=== PATIENT | male | born 1990 ===

== ENCOUNTER 2024-08-06 18:04 | Inpatient (IN) | payer OTHER ==
[~2024-08-06] VITALS: Ht 180.3 cm; Wt 107.8 kg
[2024-08-06] MEDS ORDERED: IBUP-1492 PO (19:06)
[2024-08-06] MEDS ORDERED: AMOX500C2 PO (19:06)
[2024-08-06] MEDS ORDERED: 0.9% SODIUM CHLORIDE 10 ML SYRINGE IVP PRN (20:00)
[2024-08-06 20:37] LABS: BASOPHILS % (AUTO) 0.4 % (0.0-2.0); EOSINOPHILS % (AUTO) 0.9 % (1.0-6.0); HEMATOCRIT 39.7 % (41-53); HEMOGLOBIN 13.8 g/dL (13.5-17.5); LYMPHOCYTES # (AUTO) 1.7 K/uL (1.0-4.8); LYMPHOCYTES % (AUTO) 17.1 % (22.0-44.0); MEAN CORPUSCULAR HEMOGLOBIN 29.9 pg (26.0-34.0); MEAN CORPUSCULAR HGB CONC 34.7 G/dL (31.0-37.0); MEAN CORPUSCULAR VOLUME 86 fL (80-100); MONOCYTES # (AUTO) 0.7 K/uL (0.1-1.0); NEUTROPHILS # (AUTO) 7.4 K/uL (1.8-7.7); NEUTROPHILS % (AUTO) 74.6 % (40.0-70.0); PLATELET COUNT (AUTO) 237 K/uL (150-450); RED BLOOD CELL COUNT(AUTO) 4.61 MIL/uL (4.50-5.90); RED CELL DISTRIBUTION WIDTH 12.6 % (11.5-14.5); WHITE BLOOD COUNT (AUTO) 9.9 K/uL (4.5-11.0)
[2024-08-06 20:44] LABS: CALCIUM, TOTAL 9.1 mg/dL (8.8-10.5); CHLORIDE 103 mmol/L (98-107); GLUCOSE,RANDOM 104 mg/dL (70-110); UREA NITROGEN, BLOOD 15 mg/dL (7-18)
[2024-08-06 20:45] LABS: ANION GAP 7 mmol/L (8-16); CARBON DIOXIDE 30 mmol/L (22-29); CREATININE 0.83 mg/dL (0.60-1.30); GLOMERULAR FILTR. RATE CALC > 60 mL/min (>60); POTASSIUM 3.9 mmol/L (3.5-5.1); SODIUM SERUM 140 mmol/L (136-145)
[2024-08-06] MEDS ORDERED: ONDANSETRON HCL 4 MG/2 ML VIAL IVP PRN (20:45)
[2024-08-06 20:53] LABS: LACTIC ACID 1.8 mmol/L (0.4-2.0)
[2024-08-06 20:57] LABS: ALBUMIN 3.5 g/dL (3.4-5.0)
[2024-08-06 21:03] LABS: BILIRUBIN,TOTAL 0.4 mg/dL (0.1-1.0); TOTAL PROTEIN, SERUM 7.5 g/dL (6.4-8.2)
[2024-08-06] MEDS: VANCOMYCIN 1GM/WATER(PEG/NADA) 200 ML IV ONE (21:04)
[2024-08-06] MEDS: PIPERACILLIN/TAZO 3.375 GM/D5W 50 ML IV ONE (21:04)
[2024-08-06 21:05] LABS: ALANINE AMINOTRANSFERASE 31 U/L (12-78); ALKALINE PHOSPHATASE 65 U/L (46-116); ASPARTATE AMINOTRANSFERASE 21 U/L (15-37)
[2024-08-06] MEDS: DOCUSATE SODIUM 100 MG CAPSULE PO SCH (21:05)
[2024-08-06 21:30] LABS: APPEARANCE,URINE CLEAR (CLEAR); BILIRUBIN,URINE NEGATIVE (NEGATIVE); COLOR,URINE LIGHT YELLOW (YELLOW); GLUCOSE, URINE (UA) NEGATIVE (NEGATIVE); KETONES,URINE NEGATIVE (NEGATIVE); LEUKOCYTE ESTERASE ,URINE NEGATIVE (NEGATIVE); NITRATE,URINE NEGATIVE (NEGATIVE); OCCULT BLOOD,URINE TRACE (NEGATIVE); PH,URINE 6.5 (5.0-8.0); PROTEIN,URINE NEGATIVE (NEGATIVE); SPECIFIC GRAVITIY, URINE 1.021 (1.003-1.030); UROBILINOGEN,URINE <=1.0 mg/dL (<=1.0)
[2024-08-06] MEDS: KETOROLAC TROMETHAMINE 15 MG/ML VIAL IVP PRN (21:41)
[2024-08-06] MEDS ORDERED: IOHEXOL 350 MG/ML 100 ML VIAL ONE (22:00)
[2024-08-06] MEDS ORDERED: SODIUM CHLORIDE 0.9% 100 ML ONE (22:00)
[2024-08-06 22:03] LABS: BACTERIA,URINE None Seen /HPF (None Seen); RBC,URINE 0-2 /HPF (0-2); WBC,URINE None Seen /HPF (0-5)
[2024-08-06 23:48] VITALS: BP 128/79; PULSE 74; RESP 16; TEMP 99.7; O2SAT 100
[2024-08-06] MEDS: ACETAMINOPHEN 325 MG TABLET PO PRN (23:49)
[2024-08-07] MEDS ORDERED: INFLUENZA VIRUS VACCINE TVS (6MO+) 2024-25/PF 45 MCG/0.5 ML SYRINGE IM. ONE (04:15)
[2024-08-07 05:40] VITALS: BP 122/51; PULSE 70; RESP 20; TEMP 98.3; O2SAT 100
[2024-08-07] MEDS: RINGERS SOLUTION,LACTATED 1,000 ML IV SCH (06:18)
[2024-08-07 07:21] LABS: ANION GAP 5 mmol/L (8-16); BASOPHILS % (AUTO) 0.4 % (0.0-2.0); CALCIUM, TOTAL 8.4 mg/dL (8.8-10.5); CARBON DIOXIDE 28 mmol/L (22-29); CHLORIDE 103 mmol/L (98-107); CREATININE 0.82 mg/dL (0.60-1.30); EOSINOPHILS % (AUTO) 0.8 % (1.0-6.0); GLOMERULAR FILTR. RATE CALC > 60 mL/min (>60); GLUCOSE,RANDOM 89 mg/dL (70-110); HEMATOCRIT 40.5 % (41-53); HEMOGLOBIN 14.1 g/dL (13.5-17.5); LYMPHOCYTES # (AUTO) 1.4 K/uL (1.0-4.8); MEAN CORPUSCULAR HGB CONC 34.9 G/dL (31.0-37.0); MEAN CORPUSCULAR VOLUME 86 fL (80-100); MONOCYTES # (AUTO) 0.7 K/uL (0.1-1.0); MONOCYTES % (AUTO) 7.6 % (2.0-9.0); NEUTROPHILS # (AUTO) 7.5 K/uL (1.8-7.7); NEUTROPHILS % (AUTO) 77.2 % (40.0-70.0); PLATELET COUNT (AUTO) 233 K/uL (150-450); POTASSIUM 3.5 mmol/L (3.5-5.1); RED CELL DISTRIBUTION WIDTH 12.7 % (11.5-14.5); SODIUM SERUM 136 mmol/L (136-145); UREA NITROGEN, BLOOD 14 mg/dL (7-18); WHITE BLOOD COUNT (AUTO) 9.7 K/uL (4.5-11.0)
[2024-08-07 08:18] VITALS: BP 115/72; PULSE 62; RESP 18; TEMP 98.2; O2SAT 99
[2024-08-07 20:10] VITALS: BP 144/80; PULSE 86; RESP 18; TEMP 97.9; O2SAT 98
[2024-08-07] MEDS ORDERED: SODIUM CHLORIDE 0.9% 1,000 ML ONE (21:37)
[2024-08-07] MEDS: PIPERACILLIN/TAZO 3.375 GM/D5W 50 ML IV SCH (21:41)
[2024-08-07] MEDS: VANCOMYCIN 1.75GM/WATER(PEG) 350 ML IV ONE (22:30)
[2024-08-07] MEDS: HEPARIN SODIUM,PORCINE 5,000 UNITS/ML VIAL SQ SCH (22:31)
[2024-08-08 05:27] VITALS: BP 104/69; PULSE 54; RESP 18; TEMP 98.2; O2SAT 96
[2024-08-08] MEDS: VANCOMYCIN 1.25 GM/WATER(PEG) 250 ML IV SCH (08:41)
[2024-08-08 10:23] VITALS: BP 113/75; PULSE 63; RESP 18; TEMP 98.2; O2SAT 98
[2024-08-08 10:39] LABS: ANION GAP 7 mmol/L (8-16); CALCIUM, TOTAL 9.1 mg/dL (8.8-10.5); CARBON DIOXIDE 27 mmol/L (22-29); CHLORIDE 103 mmol/L (98-107); CREATININE 0.99 mg/dL (0.60-1.30); GLOMERULAR FILTR. RATE CALC > 60 mL/min (>60); GLUCOSE,RANDOM 95 mg/dL (70-110); POTASSIUM 4.9 mmol/L (3.5-5.1); SODIUM SERUM 137 mmol/L (136-145); UREA NITROGEN, BLOOD 10 mg/dL (7-18)
[2024-08-08] MEDS: MAGNESIUM CITRATE [LEMON] 300 ML ORAL SOLUTION PO ONE (17:18)
[2024-08-08 19:50] VITALS: BP 130/88; PULSE 69; RESP 18; TEMP 98.2; O2SAT 97
[2024-08-09 05:03] VITALS: BP 97/56; PULSE 51; RESP 18; TEMP 97.6; O2SAT 98
[2024-08-09 07:41] LABS: ANION GAP 5 mmol/L (8-16); CALCIUM, TOTAL 8.7 mg/dL (8.8-10.5); CARBON DIOXIDE 27 mmol/L (22-29); CHLORIDE 104 mmol/L (98-107); CREATININE 0.96 mg/dL (0.60-1.30); GLOMERULAR FILTR. RATE CALC > 60 mL/min (>60); GLUCOSE,RANDOM 97 mg/dL (70-110); POTASSIUM 3.9 mmol/L (3.5-5.1); SODIUM SERUM 136 mmol/L (136-145); UREA NITROGEN, BLOOD 13 mg/dL (7-18); VANCOMYCIN,RANDOM 15.9 mcg/mL (25.0-50.0)
[2024-08-09 08:00] VITALS: BP 127/70; PULSE 61; RESP 19; TEMP 98.1; O2SAT 96
[2024-08-09 08:09] VITALS: BP 109/67; PULSE 53; RESP 18; TEMP 97.9; O2SAT 99
[2024-08-09 16:00] VITALS: BP 127/78; PULSE 65; RESP 18; TEMP 98.2; O2SAT 99
[2024-08-09] MEDS ORDERED: ZOLPIDEM TARTRATE 5 MG TABLET PO PRN (16:30)
[2024-08-09] MEDS: ZOLPIDEM TARTRATE 10 MG TABLET PO PRN (20:24)
[2024-08-09 20:25] VITALS: BP 120/70; PULSE 60; RESP 18; TEMP 97.7; O2SAT 97
[2024-08-10 04:40] VITALS: BP 109/59; PULSE 52; RESP 18; TEMP 97.6; O2SAT 98
[2024-08-10 06:28] LABS: ANION GAP 8 mmol/L (8-16); CARBON DIOXIDE 26 mmol/L (22-29); CHLORIDE 103 mmol/L (98-107); CREATININE 1.04 mg/dL (0.60-1.30); GLOMERULAR FILTR. RATE CALC > 60 mL/min (>60); GLUCOSE,RANDOM 104 mg/dL (70-110); SODIUM SERUM 137 mmol/L (136-145); UREA NITROGEN, BLOOD 14 mg/dL (7-18)
[2024-08-10 08:41] VITALS: BP 124/71; PULSE 60; RESP 18; TEMP 98.6; O2SAT 95
[2024-08-10 10:00] LABS: BASOPHILS % (AUTO) 0.8 % (0.0-2.0); EOSINOPHILS % (AUTO) 2.7 % (1.0-6.0); HEMATOCRIT 41.7 % (41-53); HEMOGLOBIN 14.4 g/dL (13.5-17.5); LYMPHOCYTES # (AUTO) 2.4 K/uL (1.0-4.8); LYMPHOCYTES % (AUTO) 43.1 % (22.0-44.0); MEAN CORPUSCULAR HEMOGLOBIN 29.6 pg (26.0-34.0); MEAN CORPUSCULAR HGB CONC 34.5 G/dL (31.0-37.0); MEAN CORPUSCULAR VOLUME 86 fL (80-100); MONOCYTES # (AUTO) 0.4 K/uL (0.1-1.0); MONOCYTES % (AUTO) 7.6 % (2.0-9.0); NEUTROPHILS # (AUTO) 2.5 K/uL (1.8-7.7); NEUTROPHILS % (AUTO) 45.8 % (40.0-70.0); PLATELET COUNT (AUTO) 263 K/uL (150-450); RED BLOOD CELL COUNT(AUTO) 4.86 MIL/uL (4.50-5.90); RED CELL DISTRIBUTION WIDTH 12.3 % (11.5-14.5); WHITE BLOOD COUNT (AUTO) 5.5 K/uL (4.5-11.0)
[2024-08-10] MEDS ORDERED: ACET650S24 PR (11:36)
[2024-08-10] MEDS ORDERED: DOXY-354 PO (11:39)
[2024-08-11 05:08] LABS: HEPATITIS C AB (EIA) Non Reactive (Non Reactive)
== END 2024-08-10 13:03 | DRG 603 ==
LOC: EMS 18:04 → EDH 20:34 → 6S 23:36
PROVIDERS: ADMIT Internal Medicine; ATTEND Internal Medicine
DX: L03.115 Cellulitis of right lower limb (principal); E87.3 Alkalosis; L02.415 Cutaneous abscess of right lower limb; F12.11 Cannabis abuse, in remission; E66.9 Obesity, unspecified; Z79.899 Other long term (current) drug therapy; Z68.33 Body mass index [BMI] 33.0-33.9, adult
CPT/HCPCS: 71045; 73701; 80048; 80053; 80202; 81001; 83605; 83735; 84145; 85025; 85610; 86803; 87040; 87070; 87186; 87205; 87340; 93005; 99285; J1644; J1885; J2543; J7030; J7050; J7120; 36415-L1; 36415-TC

== ENCOUNTER 2024-09-02 16:48 | Emergency (ER) | payer OTHER ==
[~2024-09-02] VITALS: Ht 180.3 cm; Wt 112.0 kg
[~2024-09-02 16:48] MED LIST: ACET650S24 PR; DOXY-354 PO; IBUP-1492 PO
[2024-09-02] MEDS ORDERED: ACET-2247 PO (17:09)
[2024-09-02 17:28] VITALS: TEMP 99.4
[2024-09-02] MEDS: LIDOCAINE 1% 10 ML VIAL SQ ONE (18:35)
[2024-09-02] MEDS: CEPHALEXIN MONOHYDRATE 500 MG CAPSULE PO ONE (18:35)
[2024-09-02] MEDS: IBUPROFEN 600 MG TABLET PO ONE (18:35)
[2024-09-02] MEDS: DOXYCYCLINE HYCLATE 100 MG TABLET PO ONE (18:35)
[2024-09-02] MEDS: HYDROCODONE/ACETAMINOPHEN 5-325 MG TABLET PO ONE (18:36)
[2024-09-02 18:49] LABS: BASOPHILS % (AUTO) 0.4 % (0.0-2.0); EOSINOPHILS % (AUTO) 0.2 % (1.0-6.0); HEMATOCRIT 42.9 % (41-53); HEMOGLOBIN 14.4 g/dL (13.5-17.5); LYMPHOCYTES # (AUTO) 1.4 K/uL (1.0-4.8); LYMPHOCYTES % (AUTO) 11.1 % (22.0-44.0); MEAN CORPUSCULAR HEMOGLOBIN 29.2 pg (26.0-34.0); MEAN CORPUSCULAR HGB CONC 33.7 G/dL (31.0-37.0); MEAN CORPUSCULAR VOLUME 87 fL (80-100); MONOCYTES # (AUTO) 0.8 K/uL (0.1-1.0); MONOCYTES % (AUTO) 6.4 % (2.0-9.0); NEUTROPHILS % (AUTO) 81.9 % (40.0-70.0); PLATELET COUNT (AUTO) 177 K/uL (150-450); RED BLOOD CELL COUNT(AUTO) 4.94 MIL/uL (4.50-5.90); RED CELL DISTRIBUTION WIDTH 12.7 % (11.5-14.5); WHITE BLOOD COUNT (AUTO) 12.3 K/uL (4.5-11.0)
[2024-09-02 18:58] LABS: ANION GAP 7 mmol/L (8-16); CALCIUM, TOTAL 9.2 mg/dL (8.8-10.5); CARBON DIOXIDE 30 mmol/L (22-29); CHLORIDE 100 mmol/L (98-107); CREATININE 0.89 mg/dL (0.60-1.30); GLOMERULAR FILTR. RATE CALC > 60 mL/min (>60); GLUCOSE,RANDOM 95 mg/dL (70-110); POTASSIUM 4.5 mmol/L (3.5-5.1); SODIUM SERUM 137 mmol/L (136-145); UREA NITROGEN, BLOOD 10 mg/dL (7-18)
[2024-09-02 19:07] VITALS: BP 133/91; PULSE 89; RESP 16; O2SAT 99
== END 2024-09-02 22:03 | disposition home or self-care (01) ==
LOC: EMS 16:49
DX: L02.411 Cutaneous abscess of right axilla (principal); L73.2 Hidradenitis suppurativa; F12.90 Cannabis use, unspecified, uncomplicated
CPT/HCPCS: 99284; 10160; 80048; 85025; 36415; J3490; 10060